=== PATIENT | male | born 1980 | race Caucasian/White ===

== ENCOUNTER 2016-11-18 16:21 | Emergency (ER) | payer OTHER ==
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
--- NOTE | 2016-11-18 17:17 | DIAGNOSTIC IMAGING REPORT ---
PROCEDURE: CT SINUS/FACIAL BONES W/O CONT CLINICAL INDICATION: TRAUMA/INJURY TECHNIQUE: Noncontrast axial CT images through the sinuses. Coronal and sagittal reformations were created. COMPARISON: None. FINDINGS: The nasal septum is midline without significant spurring. Nasal passages are patent with normal nasal turbinate morphology. No facial bone fractures. Temporomandibular joints are normally aligned. Bony orbits are intact. Orbital soft tissues appear normal. Facial soft tissues and visible glandular structures are symmetric. IMPRESSION: 1. No fractures All CT scans at this facility use dose modulation, iterative reconstruction, and/or weight-based dosing when appropriate to reduce radiation dose to as low as reasonably achievable.
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
--- NOTE | 2016-11-18 17:49 | DIAGNOSTIC IMAGING REPORT ---
PROCEDURE: XR FEMUR - LEFT INDICATION: TRAUMA/INJURY TECHNIQUE: AP and lateral views. COMPARISON: None. FINDINGS: Osseous structures are normal. IMPRESSION: 1. Normal left femur.
--- NOTE | 2016-11-18 17:49 | DIAGNOSTIC IMAGING REPORT ---
PROCEDURE: XR FEMUR - LEFT INDICATION: TRAUMA/INJURY TECHNIQUE: AP and lateral views. COMPARISON: None. FINDINGS: Osseous structures are normal. IMPRESSION: 1. Normal left femur.
--- NOTE | 2016-11-18 17:50 | DIAGNOSTIC IMAGING REPORT ---
PROCEDURE: XR ANKLE 3 OR 4 VIEWS - LEFT INDICATION: TRAUMA/INJURY TECHNIQUE: Four views. COMPARISON: None. FINDINGS: Osseous structures and joint spaces are normal. IMPRESSION: 1. Normal left ankle.
--- NOTE | 2016-11-18 19:50 | ED ORDER SUMMARY ---
..... Patient: SONNY BAE OrderSheet [facility] VisitID: [id number] [place] [address] 36y, M Registration Date/Time: 11/18/2016 ORDER SHEET Weight: 86.1 kg (stated) Allergies: No Known Drug Allergy GENERAL ORDERS: CT Sinus/Facial Bones wo Cont Urgent (16:29 11/18/2016 HBivens A.R.N.P.) (Ack 16:31 PWeiler ER Tech1) (18:07 MCampbell) Chest 2V Urgent (16:11/18/2016 HBivens A.R.N.P.) (Ack 16:31 PWeiler ER Tech1) (18:07 MCampbell) Foot 3V Right Urgent (16:11/18/2016 HBivens A.R.N.P.) (Ack 16:31 PWeiler ER Tech1) (18:07 MCampbell) Ankle 3 or 4V Left Urgent (16:29 11/18/2016 HBivens A.R.N.P.) (Ack 16:31 PWeiler ER Tech1) (18:07 MCampbell) Tibia/Fibula Left Urgent (16:29 11/18/2016 HBivens A.R.N.P.) (Ack 16:31 PWeiler ER Tech1) (18:07 MCampbell) Femur Left Urgent (16:29 11/18/2016 HBivens A.R.N.P.) (Ack 16:31 PWeiler ER Tech1) (18:07 MCampbell) CBC w Diff Urgent (16:30 11/18/2016 HBivens A.R.N.P.) (Ack 16:31 PWeiler ER Tech1) (16:39 Qiana R.N.) CMP Urgent (16:11/18/2016 HBivens A.R.N.P.) (Ack 16:31 PWeiler ER Tech1) (16:39 Qiana R.N.) UA-Culture if indicated Urgent (16:30 11/18/2016 HBivens A.R.N.P.) (Ack 16:31 PWeiler ER Tech1) (17:04 KPage-Kuchan R.N.) Suture Set-up: (16:30 11/18/2016 HBivens A.R.N.P.) (17:04 KPage-Kuchan R.N.) Irrigate Wounds (16:30 11/18/2016 HBivens A.R.N.P.) (16:38 LNations ER Tech1) Mat Cleaning Machine Operator (Continuous) (16:30 11/18/2016 HBivens A.R.N.P.) (16:39 Qiana R.N.) CT Abd/Pel wo Cont Urgent (16:45 11/18/2016 HBivens A.R.N.P.) (Ack 16:47 PWeiler ER Tech1) (18:43 Karly) Splint (LE) (Left) (Short Leg Posterior) (19:29 11/18/2016 HBivens A.R.N.P.) (19:32 KPage-Kuchan R.N.) Crutches (19:30 11/18/2016 HBivens A.R.N.P.) (20:04 KPage-Kuchan R.N.) Orthopedic Boot (19:31 11/18/2016 HBivens A.R.N.P.) (20:04 KPage-Kuchan R.N.) MEDICATION ORDERS: Lidocaine Injection 1% plain (NOW) (16:48 11/18/2016 HBivens A.R.N.P.) (17:05 KPage-Kuchan R.N.) Tdap IM 0.5 mL (NOW, per protocol) (19:10 11/18/2016 KPage-Kuchan R.N. verbal order read back to HBivens A.R.N.P.) (19:12 KPage-Kuchan R.N.) IV FLUIDS: IV NS : initial bolus 1000 mL (1000 mL/hr), then none - for X2 (NOW) (16:28 11/18/2016 HBivens A.R.N.P.) (16:39 Qiana R.N.) IV Saline Lock (x2 large bore iv) (16:28 11/18/2016 HBivens A.R.N.P.) (16:38 Qiana R.N.) Ancef IV 1 gm/50mL (NOW) (16:30 11/18/2016 HBivens A.R.N.P.) (Ack 16:44 KPage-Kuchan R.N.) (17:04 KPage-Kuchan R.N.) Zofran IV 4 mg (NOW) (16:30 11/18/2016 HBivens A.R.N.P.) (16:43 KPage-Kuchan R.N.) Morphine IV 4 mg (HIGH ALERT MEDICATION, NOW) (16:30 11/18/2016 HBivens A.R.N.P.) (16:44 KPasneha-Kumarcen R.N.) Dilaudid IV 1 mg (HIGH ALERT MEDICATION, NOW) (19:29 11/18/2016 HBivens A.R.N.P.) (19:32 KPasneha-Grant R.N.) ORDER SHEET NOTES: [Electronically signed by Lottie FaustR.N.P. (21:32 11/18/2016)] [Electronically signed by Gregorio Cosby R.N. (21:55 11/18/2016)] [Electronically locked/signed by Gregorio Cosby R.N. (21:55 11/18/2016)]
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
--- NOTE | 2016-11-18 19:50 | ED ORDER SUMMARY ---
..... Patient: SONNY BAE OrderSheet [facility] VisitID: [id number] [place] [address] 36y, M Registration Date/Time: 11/18/2016 ORDER SHEET Weight: 86.1 kg (stated) Allergies: No Known Drug Allergy GENERAL ORDERS: CT Sinus/Facial Bones wo Cont Urgent (16:29 11/18/2016 HBivens A.R.N.P.) (Ack 16:31 PWeiler ER Tech1) (18:07 MCampbell) Chest 2V Urgent (16:11/18/2016 HBivens A.R.N.P.) (Ack 16:31 PWeiler ER Tech1) (18:07 MCampbell) Foot 3V Right Urgent (16:11/18/2016 HBivens A.R.N.P.) (Ack 16:31 PWeiler ER Tech1) (18:07 MCampbell) Ankle 3 or 4V Left Urgent (16:29 11/18/2016 HBivens A.R.N.P.) (Ack 16:31 PWeiler ER Tech1) (18:07 MCampbell) Tibia/Fibula Left Urgent (16:29 11/18/2016 HBivens A.R.N.P.) (Ack 16:31 PWeiler ER Tech1) (18:07 MCampbell) Femur Left Urgent (16:29 11/18/2016 HBivens A.R.N.P.) (Ack 16:31 PWeiler ER Tech1) (18:07 MCampbell) CBC w Diff Urgent (16:30 11/18/2016 HBivens A.R.N.P.) (Ack 16:31 PWeiler ER Tech1) (16:39 Qiana R.N.) CMP Urgent (16:11/18/2016 HBivens A.R.N.P.) (Ack 16:31 PWeiler ER Tech1) (16:39 Qiana R.N.) UA-Culture if indicated Urgent (16:30 11/18/2016 HBivens A.R.N.P.) (Ack 16:31 PWeiler ER Tech1) (17:04 KPage-Kuchan R.N.) Suture Set-up: (16:30 11/18/2016 HBivens A.R.N.P.) (17:04 KPage-Kuchan R.N.) Irrigate Wounds (16:30 11/18/2016 HBivens A.R.N.P.) (16:38 LNations ER Tech1) Eastern Philosophy Professor (Continuous) (16:30 11/18/2016 HBivens A.R.N.P.) (16:39 Qiana R.N.) CT Abd/Pel wo Cont Urgent (16:45 11/18/2016 HBivens A.R.N.P.) (Ack 16:47 PWeiler ER Tech1) (18:43 Karly) Splint (LE) (Left) (Short Leg Posterior) (19:29 11/18/2016 HBivens A.R.N.P.) (19:32 KPage-Kuchan R.N.) Crutches (19:30 11/18/2016 HBivens A.R.N.P.) (20:04 KPage-Kuchan R.N.) Orthopedic Boot (19:31 11/18/2016 HBivens A.R.N.P.) (20:04 KPage-Kuchan R.N.) MEDICATION ORDERS: Lidocaine Injection 1% plain (NOW) (16:48 11/18/2016 HBivens A.R.N.P.) (17:05 KPage-Kuchan R.N.) Tdap IM 0.5 mL (NOW, per protocol) (19:10 11/18/2016 KPage-Kuchan R.N. verbal order read back to HBivens A.R.N.P.) (19:12 KPage-Kuchan R.N.) IV FLUIDS: IV NS : initial bolus 1000 mL (1000 mL/hr), then none - for X2 (NOW) (16:28 11/18/2016 HBivens A.R.N.P.) (16:39 Qiana R.N.) IV Saline Lock (x2 large bore iv) (16:28 11/18/2016 HBivens A.R.N.P.) (16:38 Qiana R.N.) Ancef IV 1 gm/50mL (NOW) (16:30 11/18/2016 HBivens A.R.N.P.) (Ack 16:44 KPage-Kuchan R.N.) (17:04 KPage-Kuchan R.N.) Zofran IV 4 mg (NOW) (16:30 11/18/2016 HBivens A.R.N.P.) (16:43 KPage-Kuchan R.N.) Morphine IV 4 mg (HIGH ALERT MEDICATION, NOW) (16:30 11/18/2016 HBivens A.R.N.P.) (16:44 KPasneha-Kumarcen R.N.) Dilaudid IV 1 mg (HIGH ALERT MEDICATION, NOW) (19:29 11/18/2016 HBivens A.R.N.P.) (19:32 KPasneha-Grant R.N.) ORDER SHEET NOTES: [Electronically signed by Lottie FaustR.N.P. (21:32 11/18/2016)] [Electronically signed by Gregorio Cosby R.N. (21:55 11/18/2016)] [Electronically locked/signed by Gregorio Cosby R.N. (21:55 11/18/2016)]
--- NOTE | 2016-11-18 21:56 | ED MAR SUMMARY ---
..... Medication Administration Record [facility] [address] [place] [address] Patient: SONNY BAE Visit ID: [id number] 36y, M Weight: 86.1 kg Height/Length: 73 in BMI: 25 ALLERGIES: No Known Drug Allergy Given 16:33 11/18/2016 Gregorio Cosby R.N. Medication Administered: ZOFRAN [IVP] (ONDANSETRON HCL), Dose: 4 mg IVP, Site: #1 left AC. Medication Ordered: Zofran IV 4 mg (NOW). Given 16:34 11/18/2016 Gregorio Cosby R.N. Medication Administered: MORPHINE [IVP], Dose: 4 mg IVP, Site: #1 left AC. Medication Ordered: Morphine IV 4 mg (HIGH ALERT MEDICATION, NOW). Start 16:38 11/18/2016 Ruthann Farris R.N., Stop 18:41 11/18/2016 Gregorio Cosby R.N. Medication Administered: IV NS (SALINE), Dose: IV Fluids over 1 hour(s), Rate: 1000 mL/hr, Dispensed: 1000 mL bag, Site: #1 left AC. Medication Ordered: IV NS : initial bolus 1000 mL (1000 mL/hr), then none - for X2 (NOW). Start 16:39 11/18/2016 Ruthann Farris R.N., Stop 18:41 11/18/2016 Gregorio Cosby R.N. Medication Administered: IV NS (SALINE), Dose: IV Fluids over 1 hour(s), Rate: 1000 mL/hr, Dispensed: 1000 mL bag, Site: #2 right AC. Medication Ordered: IV NS : initial bolus 1000 mL (1000 mL/hr), then none - for X2 (NOW). Start 17:03 11/18/2016 Gregorio Cosby R.N., Stop 18:41 11/18/2016 Gregorio Cosby R.N. Medication Administered: ANCEF [IVPB] (CEFAZOLIN SODIUM), Dose: 1 gm IVPB, Rate: 50 mL/hr, Dispensed: 50 mL bag, Site: #1 left AC. Medication Ordered: Ancef IV 1 gm/50mL (NOW). Given 17:05 11/18/2016 Gregorio Cosby R.N. Medication Administered: LIDOCAINE [INJECTION], Dose: Injection. Medication Ordered: Lidocaine Injection 1% plain (NOW). Given 17:34 11/18/2016 Gregorio Cosby R.N. Medication Administered: MORPHINE [IVP], Dose: 4 mg IVP, Site: #1 left AC. Medication Ordered: Morphine IV 4 mg (HIGH ALERT MEDICATION, NOW). Given 18:32 11/18/2016 Gregorio Cosby R.N. Medication Administered: DILAUDID [IVP] (HYDROMORPHONE HCL PF), Dose: 1 mg IVP, Site: #1 left AC. Medication Ordered: Dilaudid IV 1 mg (HIGH ALERT MEDICATION, NOW). Given 18:47 11/18/2016 Gregorio Cosby R.N. Medication Administered: TDAP [IM], Dose: 0.5 mL IM. Medication Ordered: Tdap IM 0.5 mL (NOW, per protocol).
--- NOTE | 2016-11-18 21:56 | ED MED RECONCILIATION SUMMARY ---
Patient: SONNY BAE Medication Reconciliation Report [facility] VisitID: [id number] [place] [address] 36y, M Registration Date/Time: 11/18/2016 Weight: 86.1 kg Height/Length: 73 in. BMI: 25.0 ALLERGIES: No Known Drug Allergy The patient's Home Medications are listed below: NONE. The source(s) of the original Home Medication information: patient The following Medications were given to the patient in the Emergency Department: IV NS IV Fluids bolus 0, then 1000 mL/hr, administered: 11/18/2016 4:38:00 PM IV NS IV Fluids bolus 0, then 1000 mL/hr, administered: 11/18/2016 4:39:00 PM Zofran [IVP] IVP 4 mg, administered: 11/18/2016 4:33:00 PM Morphine [IVP] IVP 4 mg, administered: 11/18/2016 4:34:00 PM Ancef [IVPB] IVPB bolus 0, then 1 gm 50 mL/hr, administered: 11/18/2016 5:03:00 PM Lidocaine [Injection] Injection, administered: 11/18/2016 5:05:00 PM Morphine [IVP] IVP 4 mg, administered: 11/18/2016 5:34:00 PM TDAP [IM] IM 0.5 mL, administered: 11/18/2016 6:47:00 PM Dilaudid [IVP] IVP 1 mg, administered: 11/18/2016 6:32:00 PM The following Medications were prescribed to the patient: Zofran 4 mg: Take 1 orally every six hours as needed for nausea/vomiting. Dispense ten (10). No refills. Substitution is permissible. -- Lottie Faust, A.R.N.P. [place] 5 mg / 325 mg tablets: take 1 orally every 6 hours as needed for pain. Dispense thirty (30). No refill. -- Lottie Faust, A.R.N.P. Motrin 800 mg tablets: take 1 tablet orally every 8 hours as needed for pain. Dispense thirty (30). No refills. Substitution is permissible. -- Govind, Neela Tafoya Keflex 500 mg: take 1 capsule orally every 8 hours for 10 days. No refill. -- Lottie Faust A.R.N.P.
--- NOTE | 2016-11-18 21:56 | ED MED RECONCILIATION SUMMARY ---
Patient: SONNY BAE Medication Reconciliation Report [facility] VisitID: [id number] [place] [address] 36y, M Registration Date/Time: 11/18/2016 Weight: 86.1 kg Height/Length: 73 in. BMI: 25.0 ALLERGIES: No Known Drug Allergy The patient's Home Medications are listed below: NONE. The source(s) of the original Home Medication information: patient The following Medications were given to the patient in the Emergency Department: IV NS IV Fluids bolus 0, then 1000 mL/hr, administered: 11/18/2016 4:38:00 PM IV NS IV Fluids bolus 0, then 1000 mL/hr, administered: 11/18/2016 4:39:00 PM Zofran [IVP] IVP 4 mg, administered: 11/18/2016 4:33:00 PM Morphine [IVP] IVP 4 mg, administered: 11/18/2016 4:34:00 PM Ancef [IVPB] IVPB bolus 0, then 1 gm 50 mL/hr, administered: 11/18/2016 5:03:00 PM Lidocaine [Injection] Injection, administered: 11/18/2016 5:05:00 PM Morphine [IVP] IVP 4 mg, administered: 11/18/2016 5:34:00 PM TDAP [IM] IM 0.5 mL, administered: 11/18/2016 6:47:00 PM Dilaudid [IVP] IVP 1 mg, administered: 11/18/2016 6:32:00 PM The following Medications were prescribed to the patient: Zofran 4 mg: Take 1 orally every six hours as needed for nausea/vomiting. Dispense ten (10). No refills. Substitution is permissible. -- Lottie Faust, A.R.N.P. [place] 5 mg / 325 mg tablets: take 1 orally every 6 hours as needed for pain. Dispense thirty (30). No refill. -- Lottie Faust, A.R.N.P. Motrin 800 mg tablets: take 1 tablet orally every 8 hours as needed for pain. Dispense thirty (30). No refills. Substitution is permissible. -- Govind, Neela Tafoya Keflex 500 mg: take 1 capsule orally every 8 hours for 10 days. No refill. -- Lottie Faust A.R.N.P.
--- NOTE | 2016-11-18 21:56 | ED DISCHARGE INSTRUCTIONS ---
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 are adjusted to fit you. When you stand, there should be room to fit 2-3 fingers between the top of the crutch and your armpit. Your elbow should be slightly bent when holding the hand director of manufacturing operations. Crutch Walking: Place the crutches forward 12" in front of and 6" to the side of your feet. Lean your weight forward as you push down on the handgrips. Your weight should be on your hands and yourstrong leg, not your armpits . Let your body swing through, landing on the strong leg. Advance the crutches forward again. The crutch and the injured leg should move together. Going Up Steps: ("Up with the good") With both crutches on the same step as your feet, push down on the handgrips. Balancing with very light pressure on the weak leg, let your hands support your weight as you raise your strong leg onto the next higher step. Transfer all your weight to your strong leg (still bent) as you move the crutches up to the next step alongside the strong leg. With your weight evenly balanced on the two crutches and your strong leg, straighten your strong knee as you raise the weak leg up to the next step. Going Down Steps: ("Down with the bad") With both crutches on the same step as your feet, push down on the handgrips. With your weight evenly balanced on the two crutches and your strong leg, bend your strong knee as you lower the weak leg down to the next step. Let your strong leg support you (still bent) as you move the crutches down alongside the weak leg. Transfer your weight to your hands, balancing with very light pressure on the weak leg as you lower your strong leg alongside your weak leg. Splint Care, Fiberglass The following will help you care for your splint: It will take up totwo hours for your fiber glass splint to fully harden; therefore, do notapply any pressure on it during that time or else it may break. To prevent swelling under the splint, for thefirst 48 hours: If the splint is on yourarm, keep it in a sling or raised to shoulder level when sitting or standing; rest it on your chest or on a pillow at your side when lying down. If the splint is on yourfoot, keep it propped up above the level of your waist when sitting or lying. Avoid crutch walking as much as possible during this time. Keep the splint/cast dry at all times. Bathe with your splint/cast well out of the water, protected with a large plastic bag, rubber-banded at the top end. If a fiberglass cast or splint gets wet, you can dry it with a hair-dryer. Follow-up care Follow up with your doctor or this facility as advised. When to seek medical care Get prompt medical attention if any of the following occur: Bad odor from the splint or wound-fluid stains the splint The splint cracks or remains wet over 24 hours Increasing tightness or pressure under the splint Fingers or toes become swollen, cold, blue, numb or tingly Increased pain under the splint Aircast Sp-Walker Boot Traditional splints and casts for the foot and ankle protect the injury by preventing movement at the joints. However, many injuries heal better and faster if the injured joint can be moved, while protected at the same time. This is the reason for using an [employer] Walker boot. This is a short boot that provides support and protection to the foot and ankle while allowing you to walk. It contains padded air cells that provide compression and help circulation. It is used for both foot and ankle injuries - both sprains and minor fractures. Ankle and foot sprains can take 4-6 weeks to heal. Persons with severe injuries or over age 60 may require more time to heal. During that time, you are prone to re-injury by suddenly twisting your foot or ankle again while the ligaments are still weak. When treating a sprain, the [employer] Walker boot should be worn whenever walking for at least four weeks, or as long as you continue to have ankle pain. Talk to your doctor for specific advice about the treatment of your condition. Air-Stirrup and SP-Walker are trademarks of [employer]. For more information about their products, see [email or web address]. Head Injury, No Wake-Up (Adult) You have had a head injury. It does not appear serious at this time. Symptoms of a more serious problem (concussion, bruising, or bleeding in the brain) may appear later. Therefore, watch for the WARNING SIGNS listed below. Home Care: Your healthcare provider will tell you whether its okay to drive. If so, you can drive yourself home. For the next day or so, be careful when driving or using heavy machinery until you are sure you have no delayed symptoms. During the next 24 hours someone must stay with you to check for the signs below. It is not necessary to stay awake or be awakened during the night. If you have swelling of the face or scalp, apply an ice pack (ice cubes in a plastic bag, wrapped in a towel) for 20 minutes. Do this every 1-2 hours until the swelling starts to go down. Do not use aspirin or ibuprofen (Motrin, Advil) after a head injury.You may use acetaminophen (Tylenol)to control pain, unless another pain medicine was prescribed. [NOTE: If you have chronic liver or kidney disease or ever had a stomach ulcer or GI bleeding, talk with your doctor before using these medicines.] For the next 24 hours: Do not take alcohol, sedatives or medicines that make you sleepy. Avoid strenuous activities. No lifting or straining. If you have had any symptoms of a concussion today (nausea, vomiting, dizziness, confusion, headache, memory loss or if you were knocked out), do not return to sports or any activity that could result in another head injury until all symptoms are gone and you have been cleared by your doctor. A second head injury before fully recovering from the first one can lead to serious brain injury. Follow Up with your doctor if symptoms are not improving after 24 hours, or as directed. [NOTE: A radiologist will review any X-rays or CT scans that were taken. We will notify you of any new findings that may affect your care.] Get Prompt Medical Attention if any of the followingWARNING SIGNS occur: Repeated vomiting Severe or worsening headache or dizziness Unusual drowsiness, or unable to awaken as usual Confusion or change in behavior or speech, memory loss, blurred vision Convulsion (seizure) Increasing scalp or face swelling Redness, warmth or pus from the swollen area Fluid drainage or bleeding from the nose or ears Diphtheria Toxoid Adsorbed, Pertussis Vaccine, Acellular (Adsorbed), Tetanus Toxoid, Adsorbed Suspension for injection What is this medicine? DIPHTHERIA and TETANUS TOXOIDS; PERTUSSIS VACCINE (dif THEER ee uh and TET n us TOK soids; per TUS iss vak SEEN) is used to prevent diphtheria, tetanus, and pertussis infections. How should I use this medicine? This vaccine is for injection into a muscle. It is given by a health critical care registered nurse. A copy of Vaccine Information Statements will be given before each vaccination. Read this sheet carefully each time. The sheet may change frequently. Talk to your telephone information supervisor regarding the use of this vaccine in children. While the DTP vaccine may be given to children ages 6 weeks to 7 years and the Tdap vaccine may be given to children at least 10 years old, precautions do apply. What side effects may I notice from receiving this medicine? Side effects that you should report to your doctor or health critical care registered nurse as soon as possible: allergic reactions like skin rash, itching or hives, swelling of the face, lips, or tongue breathing problems fever of 103 degrees F or more flu-like symptoms inconsolable crying infection pain, tingling, numbness in the hands or feet seizures swelling of arm or leg that was injected unusually weak or tired Side effects that usually do not require immediate medical attention (report these side effects to your doctor or health critical care registered nurse if they continue or are bothersome): fussy, irritable loss of appetite fever of 102 degrees F or less pain, tenderness, redness, swelling, or a 'knot' at site where injected vomiting What may interact with this medicine? immune globulin medicines that suppress your immune function like adalimumab, anakinra, infliximab medicines to treat cancer medicines that treat or prevent blood clots like warfarin, enoxaparin, and dalteparin steroid medicines like prednisone or cortisone What if I miss a dose? It is important not to miss your dose. Call your doctor or health critical care registered nurse if you are unable to keep an appointment. Where should I keep my medicine? This drug is given in a hospital or clinic and will not be stored at home. What should I tell my health care provider before I take this medicine? They need to know if you have any of these conditions: blood disorders like hemophilia fever or infection immune system problems neurologic disease seizures an unusual or allergic reaction to vaccines, thimerosal, latex, other medicines, foods, dyes, or preservatives or trying to get breast-feeding What should I watch for while using this medicine? See your health care provider for all shots of this vaccine as directed. To have protection from infection, you must have 3 shots of this vaccine plus boosters as needed. Tell your doctor right away if you have any serious or unusual side effects after getting this vaccine. Ondansetron Oral disintegrating tablet What is this medicine? ONDANSETRON (on REESE se fernandez) is used to treat nausea and vomiting caused by chemotherapy. It is also used to prevent or treat nausea and vomiting after surgery. How should I use this medicine? These tablets are made to dissolve in the mouth. Do not try to push the tablet through the foil backing. With dry hands, peel away the foil backing and gently remove the tablet. Place the tablet in the mouth and allow it to dissolve, then swallow. While you may take these tablets with water, it is not necessary to do so. Talk to your telephone information supervisor regarding the use of this medicine in children. Special care may be needed. What side effects may I notice from receiving this medicine? Side effects that you should report to your doctor or health critical care registered nurse as soon as possible: allergic reactions like skin rash, itching or hives, swelling of the face, lips, or tongue breathing problems dizziness fast or irregular heartbeat feeling faint or lightheaded, falls fever and chills swelling of the hands and feet tightness in the chest Side effects that usually do not require medical attention (report to your doctor or health critical care registered nurse if they continue or are bothersome): constipation or diarrhea headache What may interact with this medicine? Do not take this medicine with any of the following medications: -apomorphine -cisapride -dofetilide -dronedarone -pimozide -thioridazine -ziprasidone This medicine may also interact with the following medications: -carbamazepine -phenytoin -rifampicin -tramadol -other medicines that prolong the QT interval (cause an abnormal heart rhythm) What if I miss a dose? If you miss a dose, take it as soon as you can. If it is almost time for your next dose, take only that dose. Do not take double or extra doses. Where should I keep my medicine? Keep out of the reach of children. Store between 2 and 30 degrees C (36 and 86 degrees F). Throw away any unused medicine after the expiration date. What should I tell my health care provider before I take this medicine? They need to know if you have any of these conditions: heart disease history of irregular heartbeat liver disease low levels of magnesium or potassium in the blood an unusual or allergic reaction to ondansetron, granisetron, other medicines, foods, dyes, or preservatives or trying to get breast-feeding What should I watch for while using this medicine? Check with your doctor or health critical care registered nurse as soon as you can if you have any sign of an allergic reaction. Hydrocodone Bitartrate, Acetaminophen Oral tablet What is this medicine? ACETAMINOPHEN; HYDROCODONE (a set a AMY scott fen; nida droe KOE done) is a pain reliever. It is used to treat mild to moderate pain. How should I use this medicine? Take this medicine by mouth. Swallow it with a full glass of water. Follow the directions on the prescription label. If the medicine upsets your stomach, take the medicine with food or milk. Do not take more than you are told to take. Talk to your telephone information supervisor regarding the use of this medicine in children. This medicine is not approved for use in children. What side effects may I notice from receiving this medicine? Side effects that you should report to your doctor or health critical care registered nurse as soon as possible: allergic reactions like skin rash, itching or hives, swelling of the face, lips, or tongue breathing problems confusion feeling faint or lightheaded, falls stomach pain yellowing of the eyes or skin Side effects that usually do not require medical attention (report to your doctor or health critical care registered nurse if they continue or are bothersome): nausea, vomiting stomach upset What may interact with this medicine? alcohol antihistamines isoniazid medicines for depression, anxiety, or psychotic disturbances medicines for sleep muscle relaxants naltrexone narcotic medicines (opiates) for pain phenobarbital ritonavir tramadol What if I miss a dose? If you miss a dose, take it as soon as you can. If it is almost time for your next dose, take only that dose. Do not take double or extra doses. Where should I keep my medicine? Keep out of the reach of children. This medicine can be abused. Keep your medicine in a safe place to protect it from theft. Do not share this medicine with anyone. Selling or giving away this medicine is dangerous and against the law. Store at room temperature between 15 and 30 degrees C (59 and 86 degrees F). Protect from light. Keep container tightly closed. Throw away any unused medicine after the expiration date. Discard unused medicine and used packaging carefully. Pets and children can be harmed if they find used or lost packages. What should I tell my health care provider before I take this medicine? They need to know if you have any of these conditions: brain tumor Crohn's disease, inflammatory bowel disease, or ulcerative colitis drink more than 3 alcohol-containing drinks per day drug abuse or addiction head injury heart or circulation problems kidney disease or problems going to the bathroom liver disease lung disease, asthma, or breathing problems an unusual or allergic reaction to acetaminophen, hydrocodone, other opioid analgesics, other medicines, foods, dyes, or preservatives or trying to get breast-feeding What should I watch for while using this medicine? Tell your doctor or health critical care registered nurse if your pain does not go away, if it gets worse, or if you have new or a different type of pain. You may develop tolerance to the medicine. Tolerance means that you will need a higher dose of the medicine for pain relief. Tolerance is normal and is expected if you take the medicine for a long time. Do not suddenly stop taking your medicine because you may develop a severe reaction. Your body becomes used to the medicine. This does NOT mean you are addicted. Addiction is a behavior related to getting and using a drug for a non-medical reason. If you have pain, you have a medical reason to take pain medicine. Your doctor will tell you how much medicine to take. If your doctor wants you to stop the medicine, the dose will be slowly lowered over time to avoid any side effects. You may get drowsy or dizzy when you first start taking the medicine or change doses. Do not drive, use machinery, or do anything that may be dangerous until you know how the medicine affects you. Stand or sit up slowly. There are different types of narcotic medicines (opiates) for pain. If you take more than one type at the same time, you may have more side effects. Give your health care provider a list of all medicines you use. Your doctor will tell you how much medicine to take. Do not take more medicine than directed. Call emergency for help if you have problems breathing. The medicine will cause constipation. Try to have a bowel movement at least every 2 to 3 days. If you do not have a bowel movement for 3 days, call your doctor or health critical care registered nurse. Too much acetaminophen can be very dangerous. Do not take Tylenol (acetaminophen) or medicines that contain acetaminophen with this medicine. Many non-prescription medicines contain acetaminophen. Always read the labels carefully. Ibuprofen Oral tablet What is this medicine? IBUPROFEN (eye BYOO proe fen) is a non-steroidal anti-inflammatory drug (NSAID). It is used for dental pain, fever, headaches or migraines, osteoarthritis, rheumatoid arthritis, or painful monthly periods. It can also relieve minor aches and pains caused by a cold, flu, or sore throat. How should I use this medicine? Take this medicine by mouth with a glass of water. Follow the directions on the prescription label. Take this medicine with food if your stomach gets upset. Try to not lie down for at least 10 minutes after you take the medicine. Take your medicine at regular intervals. Do not take your medicine more often than directed. A special MedGuide will be given to you by the pharmacist with each prescription and refill. Be sure to read this information carefully each time. Talk to your telephone information supervisor regarding the use of this medicine in children. Special care may be needed. What side effects may I notice from receiving this medicine? Side effects that you should report to your doctor or health critical care registered nurse as soon as possible: allergic reactions like skin rash, itching or hives, swelling of the face, lips, or tongue black or bloody stools, blood in the urine or in vomit breathing problems changes in vision chest pain general ill feeling or flu-like symptoms nausea or vomiting redness, blistering, peeling or loosening of the skin, including inside the mouth slurred speech or weakness on one side of the body stomach pain unexplained weight gain or swelling unusually weak or tired yellowing of eyes or skin Side effects that usually do not require medical attention (report to your doctor or health critical care registered nurse if they continue or are bothersome): constipation or diarrhea dizziness gas or heartburn stomach upset What may interact with this medicine? Do not take this medicine with any of the following medications: cidofovir ketorolac methotrexate pemetrexed This medicine may also interact with the following medications: alcohol aspirin diuretics lithium other drugs for inflammation like prednisone warfarin What if I miss a dose? If you miss a dose, take it as soon as you can. If it is almost time for your next dose, take only that dose. Do not take double or extra doses. Where should I keep my medicine? Keep out of the reach of children. Store at room temperature between 15 and 30 degrees C (59 and 86 degrees F). Keep container tightly closed. Throw away any unused medicine after the expiration date. What should I tell my health care provider before I take this medicine? They need to know if you have any of these conditions: asthma cigarette smoker drink more than 3 alcohol containing drinks a day heart disease or circulation problems such as heart failure or leg edema (fluid retention) high blood pressure kidney disease liver disease stomach bleeding or ulcers an unusual or allergic reaction to ibuprofen, aspirin, other NSAIDS, other medicines, foods, dyes, or preservatives or trying to get breast-feeding What should I watch for while using this medicine? Tell your doctor or healthcare professional if your symptoms do not start to get better or if they get worse. This medicine does not prevent heart attack or stroke. In fact, this medicine may increase the chance of a heart attack or stroke. The chance may increase with longer use of this medicine and in people who have heart disease. If you take aspirin to prevent heart attack or stroke, talk with your doctor or health critical care registered nurse. Do not take other medicines that contain aspirin, ibuprofen, or naproxen with this medicine. Side effects such as stomach upset, nausea, or ulcers may be more likely to occur. Many medicines available without a prescription should not be taken with this medicine. This medicine can cause ulcers and bleeding in the stomach and intestines at any time during treatment. Ulcers and bleeding can happen without warning symptoms and can cause . To reduce your risk, do not smoke cigarettes or drink alcohol while you are taking this medicine. You may get drowsy or dizzy. Do not drive, use machinery, or do anything that needs mental alertness until you know how this medicine affects you. Do not stand or sit up quickly, especially if you are an older patient. This reduces the risk of dizzy or fainting spells. This medicine can cause you to bleed more easily. Try to avoid damage to your teeth and gums when you brush or floss your teeth. Cephalexin Monohydrate Oral tablet What is this medicine? CEPHALEXIN (sef a CHRISTINE in) is a cephalosporin antibiotic. It is used to treat certain kinds of bacterial infections It will not work for colds, flu, or other viral infections. How should I use this medicine? Take this medicine by mouth with a full glass of water. Follow the directions on the prescription label. This medicine can be taken with or without food. Take your medicine at regular intervals. Do not take your medicine more often than directed. Take all of your medicine as directed even if you think you are better. Do not skip doses or stop your medicine early. Talk to your telephone information supervisor regarding the use of this medicine in children. While this drug may be prescribed for selected conditions, precautions do apply. What side effects may I notice from receiving this medicine? Side effects that you should report to your doctor or health critical care registered nurse as soon as possible: allergic reactions like skin rash, itching or hives, swelling of the face, lips, or tongue breathing problems pain or trouble passing urine redness, blistering, peeling or loosening of the skin, including inside the mouth severe or watery diarrhea unusually weak or tired yellowing of the eyes, skin Side effects that usually do not require medical attention (report to your doctor or health critical care registered nurse if they continue or are bothersome): gas or heartburn genital or anal irritation headache joint or muscle pain nausea, vomiting What may interact with this medicine? probenecid some other antibiotics What if I miss a dose? If you miss a dose, take it as soon as you can. If it is almost time for your next dose, take only that dose. Do not take double or extra doses. There should be at least 4 to 6 hours between doses. Where should I keep my medicine? Keep out of the reach of children. Store at room temperature between 59 and 86 degrees F (15 and 30 degrees C). Throw away any unused medicine after the expiration date. What should I tell my health care provider before I take this medicine? They need to know if you have any of these conditions: kidney disease stomach or intestine problems, especially colitis an unusual or allergic reaction to cephalexin, other cephalosporins, penicillins, other antibiotics, medicines, foods, dyes or preservatives or trying to get breast-feeding What should I watch for while using this medicine? Tell your doctor or health critical care registered nurse if your symptoms do not begin to improve in a few days. Do not treat diarrhea with over the counter products. Contact your doctor if you have diarrhea that lasts more than 2 days or if it is severe and watery. If you have diabetes, you may get a false-positive result for sugar in your urine. Check with your doctor or health critical care registered nurse. You have been given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
--- NOTE | 2016-11-18 21:56 | ED MAR SUMMARY ---
..... Medication Administration Record [facility] [address] [place] [address] Patient: SONNY BAE Visit ID: [id number], M Weight: 86.1 kg Height/Length: 73 in BMI: 25 ALLERGIES: No Known Drug Allergy Given 16:33 11/18/2016 Gregorio Cosby R.N. Medication Administered: ZOFRAN [IVP] (ONDANSETRON HCL), Dose: 4 mg IVP, Site: #1 left AC. Medication Ordered: Zofran IV 4 mg (NOW). Given 16:34 11/18/2016 Gregorio Cosby R.N. Medication Administered: MORPHINE [IVP], Dose: 4 mg IVP, Site: #1 left AC. Medication Ordered: Morphine IV 4 mg (HIGH ALERT MEDICATION, NOW). Start 16:38 11/18/2016 Ruthann Farris R.N., Stop 18:41 11/18/2016 Gregorio Cosby R.N. Medication Administered: IV NS (SALINE), Dose: IV Fluids over 1 hour(s), Rate: 1000 mL/hr, Dispensed: 1000 mL bag, Site: #1 left AC. Medication Ordered: IV NS : initial bolus 1000 mL (1000 mL/hr), then none - for X2 (NOW). Start 16:39 11/18/2016 Ruthann Farris R.N., Stop 18:41 11/18/2016 Gregorio Cosby R.N. Medication Administered: IV NS (SALINE), Dose: IV Fluids over 1 hour(s), Rate: 1000 mL/hr, Dispensed: 1000 mL bag, Site: #2 right AC. Medication Ordered: IV NS : initial bolus 1000 mL (1000 mL/hr), then none - for X2 (NOW). Start 17:03 11/18/2016 Gregorio Cosby R.N., Stop 18:41 11/18/2016 Gregorio Cosby R.N. Medication Administered: ANCEF [IVPB] (CEFAZOLIN SODIUM), Dose: 1 gm IVPB, Rate: 50 mL/hr, Dispensed: 50 mL bag, Site: #1 left AC. Medication Ordered: Ancef IV 1 gm/50mL (NOW). Given 17:05 11/18/2016 Gregorio Cosby R.N. Medication Administered: LIDOCAINE [INJECTION], Dose: Injection. Medication Ordered: Lidocaine Injection 1% plain (NOW). Given 17:34 11/18/2016 Gregorio Cosby R.N. Medication Administered: MORPHINE [IVP], Dose: 4 mg IVP, Site: #1 left AC. Medication Ordered: Morphine IV 4 mg (HIGH ALERT MEDICATION, NOW). Given 18:32 11/18/2016 Gregorio Cosby R.N. Medication Administered: DILAUDID [IVP] (HYDROMORPHONE HCL PF), Dose: 1 mg IVP, Site: #1 left AC. Medication Ordered: Dilaudid IV 1 mg (HIGH ALERT MEDICATION, NOW). Given 18:47 11/18/2016 Gregorio Cosby R.N. Medication Administered: TDAP [IM], Dose: 0.5 mL IM. Medication Ordered: Tdap IM 0.5 mL (NOW, per protocol).
== END 2016-11-18 21:10 | disposition home or self-care (01) ==
LOC: ED SRH 16:21
DX: S01.422A Laceration with foreign body of left cheek and temporomandibular area, initial encounter (principal); S81.822A Laceration with foreign body, left lower leg, initial encounter; S82.422A Displaced transverse fracture of shaft of left fibula, initial encounter for closed fracture; S92.244A Nondisplaced fracture of medial cuneiform of right foot, initial encounter for closed fracture; S50.812A Abrasion of left forearm, initial encounter; S90.32XA Contusion of left foot, initial encounter; S40.012A Contusion of left shoulder, initial encounter; S20.212A Contusion of left front wall of thorax, initial encounter; Y93.H9 Activity, other involving exterior property and land maintenance, building and construction; V84.5XXA Driver of special agricultural vehicle injured in nontraffic accident, initial encounter; Y92.007 Garden or yard of unspecified non-institutional (private) residence as the place of occurrence of the external cause; Y99.8 Other external cause status